=== PATIENT | male | born 1970 | race Hispanic/Latino ===

== ENCOUNTER → 2019-10-03 | Day surgery (SDC) | payer BC, OTHER ==
[~2019-10-03] MED LIST: BUPIVACAINE HCL 0.5% INJ 30 ML VIAL INJ ONE; CEFAZOLIN SOD 1 GM/NS 50ML 100 ML IV ONE; FENTANYL CITRATE/PF 100MCG/2 ML INJ ONE; LIDOCAINE HCL 2% LOCAL INJ 5 ML SDV VIAL INJ ONE; MIDAZOLAM HCL 2 MG/2 ML VIAL ONE; ONDANSETRON HCL INJ 2MG/ML 2ML 2 MG/ML VIAL ONE; PROPOFOL IV EMULSION 10 MG/ML 20 ML VIAL ONE; SEVOFLURANE INHAL SOLN 250 ML PEN BTL ONE
[2019-10-03 13:25] VITALS: BP 129/80
--- NOTE | 2019-10-11 20:06 | Operative Report ---
DATE OF PROCEDURE: 10/03/2019 SURGEON: Henrique Robles MD PREOPERATIVE DIAGNOSIS: Symptomatic hardware, left ankle. POSTOPERATIVE DIAGNOSIS: Symptomatic hardware, left ankle. OPERATION PROCEDURE PERFORMED: The patient underwent removal of two syndesmosis screws from the left ankle. [employer] BILING[employer]: None. ANESTHESIA: IV sedation and monitored anesthesia care. IV FLUIDS: As per the Anesthesia record. BLOOD LOSS: Less than 5 mL. BRIEF DESCRIPTION OF THE PATIENT'S OPERATIVE PROCEDURE: Mr. Vasquez was taken to the operating room and placed in supine position on the operating table. Following induction of general anesthesia as well as endotracheal intubation, the patient's left lower extremity was examined under anesthesia. He was found to have surgical incisions consistent with previous open reduction and internal fixation of the shaft of the fibula as well as stabilization of the distal syndesmosis. Fluoroscopic evaluation of the ankle joint demonstrated two screws at the level of the syndesmosis distally. The lower extremity was prepped and draped in standard surgical fashion. The surgical incision was created at the level of his previous incision. This area was 1st anesthetized with an injection of lidocaine. An incision was then created through the previous scar tissue superficially along the skin only. Blunt dissection was used to deepen the incision to the lateral aspect of the fibula. The two screws were easily identified against the lateral aspect of the fibula and removed without difficulty. This wound was copiously irrigated with bacitracin laden normal saline. Under direct fluoroscopic evaluation, the ankle and syndesmosis were stressed and found to be stable. The wound was then closed in a multilayer fashion. Sterile dressings were applied. The patient was awakened and taken to postanesthesia care unit in stable condition. MD JENI Hodges/MODL /[id number]
== END | disposition home or self-care (01) ==
LOC: OR 07:44
PROVIDERS: ATTEND Specialist
DX: Z45.89 Encounter for adjustment and management of other implanted devices (principal); I45.10 Unspecified right bundle-branch block; Z01.810 Encounter for preprocedural cardiovascular examination; Z01.812 Encounter for preprocedural laboratory examination; Z11.59 Encounter for screening for other viral diseases; Z68.31 Body mass index [BMI] 31.0-31.9, adult
CPT/HCPCS: 20680; 93005; J0690; J2001; J2250; J2405; J2704; J3010; U0002; 76000

== ENCOUNTER 2019-10-31 17:00 | Outpatient (RCR) | payer BC | END 2019-11-07 | LOC: PT 17:00 | PROVIDERS: ATTEND Specialist | DX: M25.572 Pain in left ankle and joints of left foot (principal); M25.472 Effusion, left ankle; M25.672 Stiffness of left ankle, not elsewhere classified; M62.81 Muscle weakness (generalized) ==